=== PATIENT | female | born 2000 | race Caucasian/White ===

== ENCOUNTER 2023-12-03 09:45 | Emergency (ER) | payer OTHER ==
[2023-12-03 09:52] VITALS: BMI 22.8
[2023-12-03 12:13] LABS: BASO % 0.3 % (0-2.0); HEMATOCRIT 35.9 % (32.4-45.2); HEMOGLOBIN 11.9 GM/dL (10.7-15.3); LYMPH % 16.3 % (8-40); MCH 30.5 pg (25.7-33.7); MCHC 33.1 g/dl (32.0-36.0); MEAN CELL VOLUME 92.3 fl (80-96); MEAN PLT VOLUME 8.9 fl (7.5-11.1); MONO % 6.7 % (3.8-10.2); NEUT % 75.7 % (42.8-82.8); PLATELET COUNT 204 10^3/uL (134-434); RBC 3.89 M/mm3 (3.60-5.2); WHITE BLOOD COUNT 10.8 K/mm3 (4.0-10.0)
[2023-12-03 12:23] LABS: URINE APPEARANCE CLEAR; URINE BILIRUBIN NEGATIVE (NEGATIVE); URINE COLOR YELLOW; URINE GLUCOSE (UA) NEGATIVE (NEGATIVE); URINE KETONE NEGATIVE (NEGATIVE); URINE LEUK ESTERASE NEGATIVE (NEGATIVE); URINE NITRITE NEGATIVE (NEGATIVE); URINE PROTEIN NEGATIVE (NEGATIVE); URINE UROBILINOGEN 0.2 mg/dL (0.2-1.0)
[2023-12-03 12:36] LABS: POTASSIUM 3.7 mmol/L (3.5-5.1)
[2023-12-03 12:37] LABS: MAGNESIUM 1.9 mg/dL (1.8-2.4)
[2023-12-03 12:39] LABS: ALBUMIN 2.6 g/dl (3.4-5.0)
[2023-12-03 12:41] LABS: PHOSPHOROUS 3.3 mg/dL (2.5-4.9)
[2023-12-03 12:42] LABS: CREATININE 0.4 mg/dL (0.55-1.3)
[2023-12-03 12:43] LABS: BILIRUBIN,TOTAL 0.2 mg/dL (0.2-1); TOT PROT 5.9 g/dl (6.4-8.2)
[2023-12-03 18:15] VITALS: BP 128/80; PULSE 83; RESP 18; TEMP 98.3
== END 2023-12-03 18:40 | disposition home or self-care (01) ==
LOC: JER 09:45
DX: O99.891 Other specified diseases and conditions complicating pregnancy (principal); R00.0 Tachycardia, unspecified; R06.02 Shortness of breath; Z3A.29 29 weeks gestation of pregnancy
CPT/HCPCS: 36415; 71275-TC; 80053; 81003; 82550; 83735; 84100; 84484; 85025; 85379; 87086; 93005; 93010; 99285-25